=== PATIENT | female | born 1990 | race Two or more races ===

== ENCOUNTER 2024-04-20 20:45 | Emergency (ER) | payer MEDICAID ==
[~2024-04-20] VITALS: Ht 165.1 cm; Wt 56.8 kg
[2024-04-20] MEDS ORDERED: IBUP-1492 PO (21:03)
[2024-04-20 21:25] LABS: BASOPHILS % (AUTO) 0.6 % (0.0-2.0); EOSINOPHILS % (AUTO) 0.3 % (1.0-6.0); HEMATOCRIT 25.4 % (36-46); LYMPHOCYTES # (AUTO) 1.5 K/uL (1.0-4.8); LYMPHOCYTES % (AUTO) 13.5 % (22.0-44.0); MEAN CORPUSCULAR HEMOGLOBIN 14.3 pg (26.0-34.0); MEAN CORPUSCULAR HGB CONC 27.4 G/dL (31.0-37.0); MEAN CORPUSCULAR VOLUME 52 fL (80-100); MONOCYTES # (AUTO) 0.9 K/uL (0.1-1.0); MONOCYTES % (AUTO) 7.6 % (2.0-9.0); NEUTROPHILS # (AUTO) 8.9 K/uL (1.8-7.7); PLATELET COUNT (AUTO) 368 K/uL (150-450); RED BLOOD CELL COUNT(AUTO) 4.85 MIL/uL (4.00-5.20); RED CELL DISTRIBUTION WIDTH 21.7 % (11.5-14.5); WHITE BLOOD COUNT (AUTO) 11.4 K/uL (4.5-11.0)
[2024-04-20 21:32] LABS: ANION GAP 13 mmol/L (8-16); CALCIUM, TOTAL 9.2 mg/dL (8.8-10.5); CARBON DIOXIDE 25 mmol/L (22-29); CHLORIDE 101 mmol/L (98-107); CREATININE 0.59 mg/dL (0.60-1.30); GLOMERULAR FILTR. RATE CALC > 60 mL/min (>60); GLUCOSE,RANDOM 119 mg/dL (70-110); POTASSIUM 3.2 mmol/L (3.5-5.1); SODIUM SERUM 139 mmol/L (136-145); UREA NITROGEN, BLOOD 7 mg/dL (7-18)
[2024-04-20 21:38] LABS: APPEARANCE,URINE CLEAR (CLEAR); BILIRUBIN,URINE NEGATIVE (NEGATIVE); COLOR,URINE COLORLESS (YELLOW); GLUCOSE, URINE (UA) NEGATIVE (NEGATIVE); KETONES,URINE NEGATIVE (NEGATIVE); LEUKOCYTE ESTERASE ,URINE NEGATIVE (NEGATIVE); NITRATE,URINE NEGATIVE (NEGATIVE); OCCULT BLOOD,URINE NEGATIVE (NEGATIVE); PROTEIN,URINE NEGATIVE (NEGATIVE); SPECIFIC GRAVITIY, URINE 1.005 (1.003-1.030); UROBILINOGEN,URINE <=1.0 mg/dL (<=1.0)
[2024-04-20 21:50] LABS: RBC MORPHOLOGY COMMENT ABNORMAL RBC MORPH
[2024-04-20] MEDS: KETOROLAC TROMETHAMINE 30 MG/ML VIAL IVP ONE (23:50)
[2024-04-21] VITALS (8 sets, daily range): BP systolic 108–157; BP diastolic 59–72; PULSE 83–92; RESP 11–12; TEMP 97.5–98.3
[2024-04-21] MEDS: SODIUM CHLORIDE 0.9% 1,000 ML IV ONE (01:35)
[2024-04-21] MEDS: CefoTEtan DISOD 2 GM/DEXTROSE 50 ML IV ONE (02:18)
[2024-04-21] MEDS: DOXYCYCLINE HYCLATE 100 MG in DEXTROSE 5%-WATER 100 ML IV ONE (02:45)
[2024-04-21] MEDS ORDERED: METR500 PO (03:29)
[2024-04-21] MEDS ORDERED: DOXY-354 PO (03:29)
== END 2024-04-21 07:02 | disposition home or self-care (01) ==
LOC: EMS 20:48
DX: D64.9 Anemia, unspecified (principal); N73.0 Acute parametritis and pelvic cellulitis; Z98.890 Other specified postprocedural states
CPT/HCPCS: 99291; 74176; 96375; 80048; 81003; 82271; 84703; 85025; 87040; 86850; 86900; 86901; 86923; 87491; 87591; 36430; 96365; 96367; 96361; 36415; P9016; J1885; J3490 ×2; J7060; J7030